=== PATIENT | female | born 1955 | race Hispanic/Latino ===

== ENCOUNTER 2017-04-09 08:06 | Outpatient (CLI) | payer OTHER ==
--- NOTE | 2017-04-09 14:24 | Mammography Report ---
BILATERAL DIGITAL SCREENING MAMMOGRAM with CAD: 04/09/17 08:06:00 CLINICAL: Routine screening. COMPARISON:None available. FINDINGS: The breasts are heterogeneously dense, which may obscure small masses. No mass, architectural distortion or suspicious calcifications. IMPRESSION: No mammographic evidence of malignancy. BI-RADS CATEGORY: 1 - - Negative RECOMMENDATION: Routine mammographic screening in one year. COMMENT: Patient follow-up letters are generated by our [employer] application.
== END 2017-04-09 08:07 | disposition home or self-care (01) ==
LOC: SPVWC 08:06
PROVIDERS: ATTEND Family Medicine
DX: Z12.31 Encounter for screening mammogram for malignant neoplasm of breast (principal)
CPT/HCPCS: 77067; G0202

== ENCOUNTER 2017-08-03 09:10 | Outpatient (CLI) | payer OTHER ==
--- NOTE | 2017-08-03 09:41 | XRay Report ---
ROUTINE CHEST, TWO VIEWS: HISTORY: Cough. The trachea, heart, mediastinal contour, lung miller and bony thorax are unremarkable. IMPRESSION: Unremarkable chest x-ray.
== END 2017-08-03 09:11 | disposition home or self-care (01) ==
LOC: SPVIMAG 09:10
PROVIDERS: ATTEND Family Medicine
DX: R05 Cough (principal)
CPT/HCPCS: 71046

== ENCOUNTER 2017-12-20 07:15 | Day surgery (SDC) | payer OTHER ==
[2017-12-20] MEDS ORDERED: NACL 0.9% 500 ML 500 ML IV SCH (08:00)
[2017-12-20 08:30] LABS: Basophils # (Auto) 0.1 K/mm3 (0.0-0.1); Basophils % (Auto) 0.9 % (0.0-1.8); Eosinophils # (Auto) 0.2 K/mm3 (0.0-0.4); Eosinophils % (Auto) 3.6 % (0.0-4.3); Hematocrit 38.2 % (30.3-42.9); Hemoglobin 12.9 gm/dl (10.1-14.3); Lymphocytes # (Auto) 2.4 K/mm3 (1.2-5.4); Lymphocytes % (Auto) 34.8 % (13.4-35.0); Mean Corpuscular HGB Conc 34 % (30-34); Mean Corpuscular Hemoglobin 32 pg (28-32); Mean Corpuscular Volume 94 fl (79-97); Monocytes # (Auto) 0.6 K/mm3 (0.0-0.8); Monocytes % (Auto) 9.3 % (0.0-7.3); Platelet Count 330 K/mm3 (140-440); Red Blood Count 4.08 M/mm3 (3.65-5.03); Red Cell Distribution Width 12.8 % (13.2-15.2)
[2017-12-20 08:40] LABS: INR 0.91 (0.87-1.13)
[2017-12-20 08:41] LABS: Partial Thromboplastin Time 28.6 Sec. (24.2-36.6)
[2017-12-20 08:44] LABS: BUN/Creatinine Ratio 37; Blood Urea Nitrogen 22 mg/dL (7-17); Calcium 9.2 mg/dL (8.4-10.2); Hemolysis Index 9
[2017-12-20] MEDS ORDERED: PLAVIX PO SCH (10:00)
[2017-12-20] MEDS ORDERED: HEPARIN 10,000 UNITS/10 ML ONE (11:50)
[2017-12-20] MEDS ORDERED: XYLOCAINE 2% INFILTRATI ONE (11:50)
[2017-12-20] MEDS ORDERED: CALAN ONE (11:50)
[2017-12-20] MEDS ORDERED: HEPARIN/NS 5000 UNIT/500ML(CATH LAB) 1,000 ML IR ONE (11:50)
[2017-12-20] MEDS ORDERED: VERSED ONE (11:51)
[2017-12-20] MEDS ORDERED: NITROGLYCERIN SYRINGE 3 ML ONE (11:51)
[2017-12-20] MEDS: SUBLIMAZE ONE ×2 (12:06→12:08)
--- NOTE | 2017-12-20 12:37 | Cardiac Catherization Report ---
CARDIAC CATHETERIZATION REPORT REASON FOR PROCEDURE: Chest pain and abnormal stress test. PROCEDURE: 1. Left heart catheterization. 2. Selective left and right coronary angiography. 3. Left ventricular angiography. 4. Sedation time 12:07-12:17. DESCRIPTION OF PROCEDURE: The patient was prepped and draped in a sterile fashion after informed consent. The right radial cath site was prepped and draped after a negative Tom's test. The right radial artery was entered using Seldinger technique followed by placement of a 6-Lith[place]ian hydrophilic sheath. Routine radial cocktail was administered via the sheath. Selective left and right coronary angiography was performed using #3.5 left Marcus, and a #4 right Marcus catheter. The right Marcus was used for left ventricle angiography. The catheters were removed, sheath removed, and hemostasis achieved using manual compression. The patient was returned to the post-procedure unit in stable condition. There were no complications. FINDINGS: HEMODYNAMICS: Left ventricle end-diastolic pressure was 17, following coronary angiography. Ascending aortic pressure was 129/59. There was no significant pressure gradient on pullback across the aortic valve. CORONARY ANGIOGRAPHY: The left main coronary artery was angiographically normal. The left anterior descending artery and its diagonal branches were angiographically normal. The circumflex and its obtuse marginal branches were angiographically normal. The right coronary artery was a large, dominant vessel, and similarly angiographically normal. There was normal left ventricular systolic function, ejection fraction 60%. CONCLUSION: 1. Angiographically normal coronary arteries. 2. Normal left ventricular systolic function, ejection fraction 60%. RECOMMENDATION: Risk factor modification. JOB# [id number] CA/NTS
--- NOTE | 2017-12-20 12:39 | Discharge Summary ---
Short Stay Discharge Plan Weight Bearing Status: Full Weight Bearing Diet: low fat, low cholesterol, low salt Wound: keep clean and dry Special Instructions: no heavy lifting (3 days) Follow up with: ANDRIY BURROWS MD [Primary Care Provider] - 7 Days GERARD DALAL MD [Staff Physician] - 7 Days
[2017-12-20] MEDS ORDERED: NACL 0.9% 1000 ML 1,000 ML IV SCH (13:00)
[2017-12-20] MEDS ORDERED: TYLENOL PO ONE (13:17)
[2017-12-20 14:51] VITALS: BP 109/60
== END 2017-12-20 15:35 | disposition home or self-care (01) ==
LOC: CATHLABREC 07:15
PROVIDERS: ATTEND Internal Medicine Cardiovascular Disease
DX: R07.9 Chest pain, unspecified (principal); I10 Essential (primary) hypertension; E03.9 Hypothyroidism, unspecified; Z98.890 Other specified postprocedural states; Z90.710 Acquired absence of both cervix and uterus; Z82.49 Family history of ischemic heart disease and other diseases of the circulatory system; Z87.891 Personal history of nicotine dependence; Z79.899 Other long term (current) drug therapy; Z88.5 Allergy status to narcotic agent; Z88.6 Allergy status to analgesic agent; Z88.2 Allergy status to sulfonamides; Z88.1 Allergy status to other antibiotic agents; Z88.8 Allergy status to other drugs, medicaments and biological substances
CPT/HCPCS: 36415; 80048; 85025; 85610; 85730; 93005; 93010; 93458; 99156; 99157; C1894; J1644; J2250; J3010; J7040; Q9967